=== PATIENT | female | born 1985 | race Caucasian/White ===

== ENCOUNTER 2016-09-02 17:15 | Emergency (ER) | payer SELFPAY ==
[2016-09-02 17:25] VITALS: BP 135/81
--- NOTE | 2016-09-02 17:31 | ED Physician Documentation ---
Ear Complaints - HISTORIAN Historian: patient - HPI Stated Complaint: bilateral ear pain Chief Complaint: Ear Complaints Timing: worse Location of Pain: both ears Severity: severe Associated Symptoms: fever, chills - ROS CONST: no problems CVS/RESP: none GI/: denies: nausea, vomiting MS/SKIN/LYMPH: none NEURO/PSYCH: denies: weakness All Systems -: Yes - PAST HX Past History: none Allergies/Adverse Reactions: Allergies Allergy/AdvReac Type Severity Reaction Status Date / Time No Known Allergies Allergy Verified 09/02/16 17:21 Home Medications: Ambulatory Orders Medication Instructions Recorded Amoxicillin [Amoxil] 500 mg PO TID #30 capsule 09/02/16 - SOCIAL HX Smoking History: non-smoker - FAMILY HX Family History: No - VITAL SIGNS Vital Signs: Vital Signs Temp Pulse Resp BP Pulse Ox 98.5 F 83 16 135/81 98 09/02/16 17:15 09/02/16 17:15 09/02/16 17:15 09/02/16 17:15 09/02/16 17:15 - REVIEWED ASSESSMENTS Nursing Assessment Reviewed: Yes Vitals Reviewed: Yes Ear Complaint Physical Exam - EXAM General Appearance: mild distress Ear: auricle nml, cage maker.canal nml, bulging of TM (right), fluid behind TM (left ), other (TM with bilateral erythema, ) Head/Neck: atraumatic, neck nml inspection Resp/CVS: chest non-tender, breath sounds nml, heart sounds nml Abdomen: non-tender, no organomegaly Skin: nml color, no skin rash Neuro/Psych: oriented x3, mood/affect nml Discharge Clincal Impression: BOM (bilateral otitis media) Qualifiers: Otitis media type: suppurative Chronicity: acute Recurrence: not specified as recurrent Spontaneous tympanic membrane rupture: without spontaneous rupture Qualified Code(s): H66.003 - Acute suppurative otitis media without spontaneous rupture of ear drum, bilateral Prescriptions: Amoxicillin [Amoxil] 500 mg PO TID #30 capsule Referrals: Primary Doctor,No [Primary Care Provider] - 2 Days Home Medications: Ambulatory Orders Amoxicillin [Amoxil] 500 mg PO TID #30 capsule 09/02/16 Condition: Stable Disposition: 01 HOME, SELF-CARE Decision to Admit: NO Decision Time: 17:30
== END 2016-09-02 17:30 | disposition home or self-care (01) ==
LOC: ED 17:15
DX: H66.003 Acute suppurative otitis media without spontaneous rupture of ear drum, bilateral (principal)
CPT/HCPCS: 99283

== ENCOUNTER 2016-09-05 03:31 | Emergency (ER) | payer OTHER ==
[2016-09-05] MEDS ORDERED: MAG HYDROX/AL HYDROX/SIMETH 30 ML, Lidocaine 2%Visc 15ml 20 MG, PHENobarb/HYOSCY/ATROPI... PO ONE ×3 (03:49)
[2016-09-05] MEDS ORDERED: HALOPERIDOL LACTATE 5 MG/ML VIAL IM ONE (03:49)
[2016-09-05] MEDS ORDERED: KETOROLAC TROMETHAMINE 60 MG/2 ML VIAL IM ONE ×2 (03:49→04:06)
[2016-09-05] MEDS ORDERED: NEOMYCIN OT ONE (04:03)
[2016-09-05] MEDS ORDERED: POLYMYXIN B SULF OT ONE (04:03)
[2016-09-05] MEDS ORDERED: [UNRECOGNIZED DRUG - OTHER] OT ONE (04:03)
--- NOTE | 2016-09-05 04:27 | ED Physician Documentation ---
Ear Complaints - HISTORIAN Historian: patient - HPI Stated Complaint: bilateral ear pain Chief Complaint: Earache Timing: still present, worse Location of Pain: both ears Severity: moderate Associated Symptoms: aching Further Comments: no - ROS CONST: no problems CVS/RESP: none GI/: denies: black stools, nausea, vomiting MS/SKIN/LYMPH: none NEURO/PSYCH: denies: weakness, numbness, anxiety, depression All Systems -: Yes - PAST HX Past History: none Immunizations: referred to PCP Allergies/Adverse Reactions: Allergies Allergy/AdvReac Type Severity Reaction Status Date / Time No Known Allergies Allergy Verified 09/05/16 03:40 Home Medications: Ambulatory Orders Medication Instructions Recorded Amoxicillin [Amoxil] 500 mg PO TID #30 capsule 09/02/16 - SOCIAL HX Smoking History: non-smoker Alcohol Use: none Drug Use: none - FAMILY HX Family History: No - VITAL SIGNS Vital Signs: Vital Signs Temp Pulse Resp BP Pulse Ox 72 16 136/79 99 09/05/16 03:40 09/05/16 03:40 09/05/16 03:40 09/05/16 03:40 - REVIEWED ASSESSMENTS Nursing Assessment Reviewed: Yes Vitals Reviewed: Yes Progress - Results/Orders Results/Orders: no testing ordered - Progress Progress: pt. given Cortisporin otic drops in er with Toradol 60 mg im in er Critical Care Note - Critical Care Note Total Time (mins): 0 ED Results Lab/Radiology - Lab Results Lab Results: none ordered - Radiology Radiology Impressions: none ordered - Orders Orders: ED Orders Category Date Time Status Haloperidol Lactate [Haldol] Med 09/05/16 03:49 Discontinued 5 mg IM NOW ONE Ketorolac Tromethamine [Toradol] Med 09/05/16 03:49 Discontinued 60 mg IM NOW ONE Ketorolac Tromethamine [Toradol] Med 09/05/16 04:06 Discontinued 60 mg IM NOW ONE Mag Hydrox/Al Hydrox/Simeth [Mylanta] 30 ml Med 09/05/16 03:49 Discontinued Lidocaine 2%Visc 15ml [Xylocaine] 20 mg PHENobarb/HYOSCY/ATROPINE/SCOP [] 10 ml PO NOW Neomycin/Polymyxin B Sulf/Hc [Cortisporin Otic] Med 09/05/16 04:03 Discontinued 4 drop OT NOW ONE EKG WITH COMPARISON Routine Ther 09/05/16 Stop Req Ear Complaint Physical Exam - EXAM General Appearance: alert, mild distress Ear: auricle nml, pain w movement of auricl, right, left, erythema, swelling of canal, TM's nml (left), fluid behind TM (right) Mouth/Throat: lips nml, gums nml, pharynx nml Nose: nml inspection Head/Neck: atraumatic, neck nml inspection Eye: eyes nml inspection, PERRL Resp/CVS: chest non-tender, breath sounds nml, heart sounds nml, no resp. distress, lungs clear, reg. rate & rhythm Abdomen: non-tender, no organomegaly Skin: nml color, no skin rash Neuro/Psych: oriented x3, mood/affect nml Discharge Clincal Impression: Otitis externa Qualifiers: Otitis externa type: swimmer's ear Laterality: bilateral Chronicity: acute Qualified Code(s): H60.333 - Swimmer's ear, bilateral Home Medications: Ambulatory Orders Amoxicillin [Amoxil] 500 mg PO TID #30 capsule 09/02/16 Comments: Discharged in stable condition with script for Meloxicam 7.5 mg 1 p.o. bid #10 and Cortisporin Otic Drops #1 bottle 3 drops both ears tid x 5 days. Finish Amoxicillin. Condition: Stable Disposition: 01 HOME, SELF-CARE Decision to Admit: NO Decision Time: 04:15
[2016-09-05 04:29] VITALS: BP 136/72
== END 2016-09-05 04:25 | disposition home or self-care (01) ==
LOC: ED 03:31
DX: H60.333 Swimmer's ear, bilateral (principal)
CPT/HCPCS: 96372; 99283; J1885